=== PATIENT | female | born 1965 | race Two or more races ===

== ENCOUNTER → 2016-11-25 | Outpatient (CLI) | payer OTHER | LOC: BRMIMAGING 13:20 | PROVIDERS: ATTEND Family Medicine | DX: Z12.31 Encounter for screening mammogram for malignant neoplasm of breast (principal) | CPT/HCPCS: G0202 ==

== ENCOUNTER → 2018-01-07 | Outpatient (CLI) | payer OTHER | LOC: BRMIMAGING 09:34 | PROVIDERS: ATTEND Hospitalist | DX: R92.8 Other abnormal and inconclusive findings on diagnostic imaging of breast (principal) ==